=== PATIENT | female | born 1970 | race Caucasian/White ===

== ENCOUNTER 2022-02-08 14:39 | Outpatient (CLI) | payer BC | END 2022-02-08 14:40 | disposition home or self-care (01) | LOC: BICULT 14:39 | PROVIDERS: ATTEND Nurse Practitioner Family | DX: N93.9 Abnormal uterine and vaginal bleeding, unspecified (principal); R10.2 Pelvic and perineal pain | CPT/HCPCS: 76856 ==

== ENCOUNTER 2024-02-27 13:07 | Outpatient (CLI) | payer BC | END 2024-02-27 13:08 | disposition home or self-care (01) | LOC: BICMAMMO 13:07 | PROVIDERS: ATTEND Nurse Practitioner Family | DX: Z12.31 Encounter for screening mammogram for malignant neoplasm of breast (principal) | CPT/HCPCS: 77063; 77067 ==